=== PATIENT | male | born 1970 | race Caucasian/White ===

== ENCOUNTER 2023-07-18 14:47 | Outpatient (OUT) | payer SELFPAY ==
[2023-07-18 15:46] LABS: Ammonia 112 umol/L (11-32)
[2023-07-18 15:51] LABS: Hematocrit 35.6 % (42.0-54.0); Mean Corpuscular HGB Conc 33.7 g/dL (29.9-35.2); Mean Corpuscular Hemoglobin 33.2 pg (25.9-34.0); Mean Corpuscular Volume 98.6 fL (80.0-94.0); Mean Platelet Volume 10.6 fL (9.5-13.5); Platelet Count 36 10^3/uL (150-450); Red Blood Count 3.61 10^6/uL (4.70-6.10); Red Cell Distribution Width 14.4 % (11.0-15.0); White Blood Count 2.2 10^3/uL (4.0-11.0)
[2023-07-18 16:08] LABS: Alanine Aminotransferase 47 U/L (16-63); Albumin Globulin Ratio 0.4; Albumin Level 2.1 g/dL (3.4-5.0); Alkaline Phosphatase 167 U/L (46-116); Anion Gap 10.7; Aspartate Amino Transferase 77 U/L (15-37); Bilirubin Total 3.9 mg/dL (0.2-1.0); Calcium 8.1 mg/dL (8.5-10.1); Carbon Dioxide 28.2 mmol/L (21.0-32.0); Chloride 105 mmol/L (98-107); Estimated GFR (African America >60 (>=60); Estimated GFR (Non-African Ame >60 (>=60); Globulin 4.9 g/dL; Glucose 139 mg/dL (74-106); Potassium 3.9 mmol/L (3.5-5.1); Sodium 140 mmol/L (136-145); Thyroid Stimulating Hormone 1.978 uIU/mL (0.358-3.740)
[2023-07-18 16:49] LABS: Basophils Abs Manual 0.02 10^3/uL (0.00-0.10); Eosinophils Absolute Manual 0.15 10^3/uL (0.00-0.70); Monocytes Absolute Manual 0.08 10^3/uL (0.30-0.80); Segmented Neut Absolute Manual 1.25 10^3/uL (1.4-6.5)
[2023-07-20 08:11] LABS: HBsAg Screen Negative (Negative); HIV Ab/p24 Ag Screen Non Reactive (Non Reactive); Hepatitis B Surf Ab Quant 4.9 mIU/mL (Immunity>9.9)
[2023-07-20 10:11] LABS: Rapid Plasma Reagin, Quant Non Reactive titer (NonRea<1:1)
== END 2023-07-18 14:48 | disposition home or self-care (01) ==
DX: F10.20 Alcohol dependence, uncomplicated (principal); I50.20 Unspecified systolic (congestive) heart failure; K70.31 Alcoholic cirrhosis of liver with ascites; D64.9 Anemia, unspecified; I85.00 Esophageal varices without bleeding
CPT/HCPCS: 36415; 80053; 82140; 83880; 84443; 85007; 85027; 86317; 86592; 87340; 87389

== ENCOUNTER 2023-07-30 10:17 | Outpatient (OUT) | payer SELFPAY ==
[2023-07-30 11:14] LABS: Ammonia 101 umol/L (11-32)
== END 2023-07-30 10:18 | disposition home or self-care (01) ==
LOC: LAB 10:24
PROVIDERS: Visit Provider Nurse Practitioner Primary Care
DX: K70.31 Alcoholic cirrhosis of liver with ascites (principal)
CPT/HCPCS: 36415; 82140